=== PATIENT | female | born 1990 | race Caucasian/White ===

== ENCOUNTER 2022-01-09 20:15 | Emergency (ER) | payer OTHER ==
[2022-01-09] MEDS ORDERED: predniSONE 20 MG TABLET (UD) ONE (20:20)
[2022-01-09] MEDS ORDERED: FAMOTIDINE 20 MG TABLET ONE (20:20)
[2022-01-09] MEDS ORDERED: FAMOTIDINE 20 MG TABLET PO ONE (20:24)
[2022-01-09] MEDS ORDERED: predniSONE 20 MG TABLET (UD) PO ONE (20:24)
[2022-01-09 20:37] VITALS: BP 106/66; PULSE 79; TEMP 97.8; BMI 23.0
== END 2022-01-09 23:15 | disposition home or self-care (01) ==
LOC: FER 20:15
DX: T78.40XA Allergy, unspecified, initial encounter (principal)
CPT/HCPCS: 99283-25